=== PATIENT | male | born 1985 | race Caucasian/White ===

== ENCOUNTER 2018-05-16 12:18 | Emergency (ER) | payer SELFPAY ==
[~2018-05-16] VITALS: Ht 175.3 cm; Wt 85.0 kg
[2018-05-16] MEDS ORDERED: CYCLOBENZAPRINE 10MG TABLET PO ONE (13:15)
[2018-05-16] MEDS ORDERED: IBUPROFEN 600MG TABLET PO ONE (13:15)
[2018-05-16 13:46] VITALS: BP 130/84
== END 2018-05-16 13:47 | disposition home or self-care (01) ==
LOC: ER 12:30
DX: S16.1XXA Strain of muscle, fascia and tendon at neck level, initial encounter (principal); V89.2XXA Person injured in unspecified motor-vehicle accident, traffic, initial encounter; Y93.89 Activity, other specified; Y92.89 Other specified places as the place of occurrence of the external cause; Y99.8 Other external cause status
CPT/HCPCS: 99283